=== PATIENT | male | born 1975 | race African-American/Black ===

== ENCOUNTER 2020-03-29 11:33 | Emergency (ER) | payer OTHER ==
[~2020-03-29] VITALS: Ht 175.3 cm; Wt 81.6 kg
[2020-03-29 11:33] VITALS: BP 130/70
--- NOTE | 2020-03-29 11:47 | NUR ---
Patient discharged to home in stable condition. Written and verbal after care instructions given. Patient verbalizes understanding of instruction. Pt ambulatory with a steady gait
--- NOTE | 2020-03-29 11:47 | NUR ---
COVID SWAB DONE AND SENT TO LAB
== END 2020-03-29 11:49 | disposition home or self-care (01) ==
LOC: ER 11:37
DX: Z20.828 Contact with and (suspected) exposure to other viral communicable diseases (principal)
CPT/HCPCS: 87426; 99283; C9803; U0003